=== PATIENT | female | born 1955 | race African-American/Black ===

== ENCOUNTER 2018-02-01 12:59 | Outpatient (CLI) | payer MEDICARE ==
[2018-02-01] MEDS ORDERED: Iopamidol 370 76% 100 ML VIAL ONE (13:08)
--- NOTE | 2018-02-01 15:31 | CT ---
CT ANGIOGRAM OF THE NECK: Date: 02-01-18 Comparison: None. History: Syncope, collapse, patient blacks out when it's hot outside. Technique: Serial axial CT imaging at 1 mm intervals from skull base through lung apices with IV contrast using a CT angiogram protocol. Coronal and sagittal 3D reformatted imaging obtained. FINDINGS: The imaged paranasal sinuses/mastoid air cells are well aerated. The retro, antral, and peripharyngeal fat appears clear bilaterally. The submandibular and the parotid glands are grossly unremarkable as are the tonsillar pillars, the h yoid bone, the epiglottis, the thyroid cartilage and the cricoid cartilage. There are hypodense nodul es noted within the thyroid gland bilaterally, measuring up to 9-10 mm on the left. The imaged lung apices appear grossly unremarkable. There is a bovine arch noted. The origin of the left common carotid artery, innominate artery, and ri ght common carotid artery appear unremarkable. Origin of left and right subclavian artery appear with in normal limits. Bilateral vertebral arteries are patent with no hemodynamically significant stenosis noted on either side. On the basis of NASCET criteria, no hemodynamically significant stenosis is noted within the common o r internal carotid artery on either side. No adenopathy is appreciated within the neck. The imaged osseous structures demonstrate mild multilev el cervical spine degenerative change. No worrisome lytic or blastic bone lesion. IMPRESSION: Arterial structures of the neck are patent with no hemodynamically significant stenosis within the ca rotid system on either side on the basis of NASCET criteria. Incidental findings as described above. POS: [facility]
--- NOTE | 2018-02-01 15:42 | MRI ---
BRAIN MRI WITHOUT CONTRAST: 02/01/18 COMPARISON: None. HISTORY: Syncope and collapse, patient blacks out when it is hot outside. TECHNIQUE: Multiplanar and multisequence MRI imaging of the brain is obtained without contrast. FINDINGS: The diffusion weighted imaging demonstrates no evidence for acute infarction. The axial gradient echo imaging demonstrates no evidence for intracranial hemorrhage. Imaged paranasal sinuses/mastoid air c ells are grossly unremarkable. There is a mild/moderated degree of diffuse cerebral volume loss. There are numerous subcentimeter fo ci of increased T2 and FLAIR signal throughout the periventricular, deep, and subcortical white matte r. Confluent areas of increased T2 and FLAIR signal noted near the atria of the right and left latera l ventricle and there are a few punctate foci of increased T2 and FLAIR signal within the fatemeh. These findings suggest significant small vessel ischemic disease. Regional bone marrow signal intensity appears grossly unremarkable. IMPRESSION: Evidence of small vessel ischemic disease and volume loss with no MR evidence of acute infarction or intracranial hemorrhage. POS: [facility]
== END 2018-02-01 13:00 | disposition home or self-care (01) ==
LOC: TBSIIMAG 12:59
PROVIDERS: ATTEND Psychiatry & Neurology Neurology
DX: R55 Syncope and collapse (principal); I67.82 Cerebral ischemia
CPT/HCPCS: 70498; 70551; 82565

== ENCOUNTER 2018-04-01 08:16 | Outpatient (CLI) | payer MEDICARE | END 2018-04-01 08:17 | disposition home or self-care (01) | LOC: BICMAMMO 08:16 | PROVIDERS: ATTEND Family Medicine | DX: Z12.31 Encounter for screening mammogram for malignant neoplasm of breast (principal); N64.89 Other specified disorders of breast | CPT/HCPCS: 77063; 77067 ==

== ENCOUNTER 2018-04-20 13:11 | Outpatient (CLI) | payer MEDICARE | END 2018-04-20 13:12 | disposition home or self-care (01) | LOC: BICULT 13:11 | PROVIDERS: ATTEND Family Medicine | DX: R22.31 Localized swelling, mass and lump, right upper limb (principal) | CPT/HCPCS: 76999 ==

== ENCOUNTER 2019-03-09 14:20 | Observation (INO) | payer MEDICARE ==
[2019-03-09 14:58] LABS: #Eosinphils 0.1 thou/uL (0.0-0.7); #Lymphocytes 1.4 thou/uL (1.20-3.40); #Monocytes 0.4 thou/uL (0.11-0.59); #Neutrophils 2.4 thou/uL (1.40-6.50); %Basophils 0.6 % (0.0-1.0); %Eosinophils 1.4 % (0.0-10.0); %Lymphocytes 32.5 % (21.0-51.0); %Monocytes 9.9 % (0.0-10.0); %Neutrophils 55.6 % (42.0-75.0); Hemoglobin 10.2 g/dL (12.0-16.0); Mean Corpuscular HGB CONC 32.8 g/dL (32.0-36.0); Mean Corpuscular Hemoglobin 28.1 pg (27.0-31.0); Mean Corpuscular Volume 85.6 fL (78.0-98.0); Mean Platelet Volume 8.4 fL (7.4-10.4); Platelet Count 183 thou/uL (130-400); RBC Distribution Width 12.9 % (11.5-14.5); Red Blood Cell (RBC) Count 3.62 mill/uL (4.20-5.40); White Blood Cell (WBC) Count 4.3 thou/uL (4.8-10.8)
--- NOTE | 2019-03-09 15:06 | CT ---
Exam: Head CT without contrast HISTORY: Altered mental state COMPARISON: 02/26/2016 FINDINGS: Hemorrhage: No intraparenchymal hemorrhage or extra-axial hematoma. Brain parenchyma: Cortical moreno-white matter differentiation is preserved. No mass effect or midline shift. Basilar cisterns are patent.Stable white matter hypodensities, likely due to chronic small vessel change. Ventricular system: Ventricles and sulci are patent and symmetric. Calvarium: Intact. Sinuses and mastoid air cells: Adequate aeration. IMPRESSION: No acute intracranial process.
[2019-03-09 15:18] LABS: ALT (SGPT) Less than 7 U/L (8-55); AST (SGOT) 16 U/L (5-34); Albumin 4.5 g/dL (3.4-4.8); Alkaline Phosphatase 59 U/L (40-150); Anion Gap 12 mmol/L (10-20); BUN (Urea Nitrogen) 24 mg/dL (9.8-20.1); Bilirubin, Total 0.4 mg/dL (0.2-1.2); Calc. Creatinine Clearance 0 mL/min (70-130); Calcium 10.5 mg/dL (7.8-10.44); Carbon Dioxide 34 mmol/L (23-31); Chloride 98 mmol/L (98-107); Estimated GFR-MDRD 60; Glucose 88 mg/dL (80-115); Potassium 3.4 mmol/L (3.5-5.1); Protein, Total 7.5 g/dL (6.0-8.3); Sodium 141 mmol/L (136-145)
[2019-03-09] MEDS ORDERED: niCARdipine 20MG In NaCl 20 MG/200 ML BAG ONE (15:19)
[2019-03-09] MEDS ORDERED: HYDROcodone/Acetaminophen 5/325 mg Tablet ONE (16:09)
[2019-03-09] MEDS ORDERED: Amlodipine 5 MG TAB ONE (16:56)
[2019-03-09] MEDS ORDERED: Lisinopril 10 MG TAB ONE (16:56)
[2019-03-09] MEDS ORDERED: Acetaminophen 325 MG TAB PO PRN (16:58)
[2019-03-09] MEDS ORDERED: Bisacodyl 5 MG TAB PO PRN (16:58)
[2019-03-09] MEDS ORDERED: Senokot S 8.6-50 MG TAB PO PRN (16:58)
[2019-03-09] MEDS ORDERED: Cyclobenzaprine 10 MG TAB PO PRN (18:13)
[2019-03-09] MEDS ORDERED: Cyclobenzaprine 10 MG TAB PO SCH (18:15)
[2019-03-09] MEDS ORDERED: Diazepam 5 MG TAB ONE (18:50)
--- NOTE | 2019-03-09 22:36 | HP ---
PRIMARY CARE PHYSICIAN: Gracia Cardoza MD. CHIEF COMPLAINT: High blood pressure. HISTORY OF PRESENT ILLNESS: Ms. Roberts is a 63-year-old female who presented to the emergency room today for high blood pressure. She was seen at her PCPs office today, noted to have a blood pressure of 200/100 without recent history of any hypertension. When she was at the PCPs office, she was also noted to have a high heart rate and with these two things they recommended the patient come to the emergency room for further evaluation. The patient's family denied the patient has been complaining of any chest pain. The patient denies any chest pain or shortness of breath. Does report myalgias throughout her whole body, which she reports is normal with her Parkinson disease. Dr. Stephens prescribed some Ritalin 5 mg once a day, which patient reports was due to her fear of being alone. She has not taking this medication and family was not aware she was taking it. Family reports that she had at one time a diagnosis of hypertension and was on medication, but has become anemic in recent years and been blood pressure has been on the lower side, so she stopped taking any medication for it. While in the ED, her initial blood pressure was 209/124. She was started on a Cardene drip at 5 mg/hour and then it went down to 2.5 mg/hour. Blood pressure came down to 151/93 and Cardene order was stopped and patient was given 2 p.o. medications, amlodipine and lisinopril. Blood pressure in the 160 systolic after the Cardene drip was stopped. PAST MEDICAL HISTORY: Pertinent for Parkinson's and hypertension in the past. Also has a history of PUD. PAST SURGICAL HISTORY: Appendectomy, hysterectomy. PSYCHIATRIC HISTORY: Anxiety, depression. SOCIAL HISTORY: Denies any alcohol or drug. No smoking history. Lives at home and is cared for by her family. IMAGING: CT scan of the brain in the emergency room shows no acute findings. LABORATORY DATA: Creatinine is 1.11, which is not far from baseline. When it was checked in 2018, it was 1.04. Troponin x2 have been undetectable. Potassium is 3.4, carbon dioxide 34, BUN 24, estimated GFR is 60. White blood cell count 4.3, hemoglobin 10.2, hematocrit 31.0, and platelet count is 183. The patient admitted to the telemetry unit for further management. PAST MEDICAL HISTORY: None. ALLERGIES: ASPIRIN, SULFA. CURRENT MEDICATIONS: 1. Carbidopa levodopa 10-100 mg p.o. 3 times daily. 2. Methylphenidate 5 mg p.o. once daily, although the bottle is empty and the patient reports that she has taken all and there is no refill. 3. Cyclobenzaprine 10 mg p.o. once daily. 4. Oxybutynin chloride 10 mg p.o. once daily. REVIEW OF SYSTEMS: The patient reports that she is hurting all over, myalgias. Denies any other complaints. All other systems reviewed and negative unless mentioned in the HPI. PHYSICAL EXAMINATION: VITAL SIGNS: Blood pressure 165/105, pulse is 93, respirations 17, pO2 sats are 100% on room air. CONSTITUTIONAL: The patient appears nontoxic. She is alert and oriented to person, place, and time. HEAD: Head is normocephalic. There is some bruising at the left oriental orthodox. EYES: Eyelids are normal to inspection. Pupils are equally round and reactive to light. ENT: Mouth exam is normal. Mucous membranes are moist. NECK: Normal range of motion. Trachea is midline. RESPIRATORY/CHEST: Breath sounds are clear. Chest movement is symmetrical. CARDIOVASCULAR: Regular heart rate and rhythm. Heart sounds are normal. ABDOMEN: Nontender bowel sounds are heard. BACK: Normal inspection, normal range of motion. No CVA tenderness. EXTREMITIES: Upper extremity normal inspection, normal range of motion. Radial pulses equal bilaterally. Lower extremities, bruising to bilateral lower extremity per daughter. Bilateral lower extremity able to make an effort against gravity, but is not able to lift bilaterally. NEUROLOGIC: Resting tremor to bilateral upper extremity and lips. The patient is oriented to person, place, and time. Speech is normal. SKIN: Warm, dry and normal in color. Ecchymoses noted as above. PSYCHIATRIC: The patient is tearful, has a flat affect. IMAGING: EKG in the emergency room shows normal sinus rhythm, beats per minute 79, conduction normal, axis is normal. PLAN/ASSESSMENT: 1. Hypertensive urgency. We will continue to monitor. Start p.o. medications, amlodipine and lisinopril. We will monitor overnight. P.r.n. medications as needed. 2. History of Parkinson's. We will restart home medications. 3. Deep venous thrombosis and gastrointestinal prophylaxis will be started. 4. Case was discussed with Dr. Roy who agrees with plan. 5. Hospital course dependent on clinical findings. Job ID: [id number]
[2019-03-09] MEDS ORDERED: HYDROcodone/Acetaminophen 5/325 mg Tablet PO PRN (23:15)
[2019-03-10 04:49] LABS: #Eosinphils 0.1 thou/uL (0.0-0.7); #Lymphocytes 1.3 thou/uL (1.20-3.40); #Monocytes 0.6 thou/uL (0.11-0.59); #Neutrophils 2.3 thou/uL (1.40-6.50); %Basophils 0.5 % (0.0-1.0); %Lymphocytes 30.9 % (21.0-51.0); %Monocytes 12.9 % (0.0-10.0); %Neutrophils 53.7 % (42.0-75.0); Hemoglobin 9.7 g/dL (12.0-16.0); Mean Corpuscular HGB CONC 33.7 g/dL (32.0-36.0); Mean Corpuscular Hemoglobin 28.9 pg (27.0-31.0); Mean Corpuscular Volume 85.5 fL (78.0-98.0); Mean Platelet Volume 8.7 fL (7.4-10.4); Platelet Count 169 thou/uL (130-400); Red Blood Cell (RBC) Count 3.35 mill/uL (4.20-5.40); White Blood Cell (WBC) Count 4.3 thou/uL (4.8-10.8)
[2019-03-10 05:06] LABS: ALT (SGPT) 8 U/L (8-55); AST (SGOT) 14 U/L (5-34); Albumin 3.8 g/dL (3.4-4.8); Alkaline Phosphatase 50 U/L (40-150); Anion Gap 11 mmol/L (10-20); BUN (Urea Nitrogen) 22 mg/dL (9.8-20.1); Bilirubin, Total 0.6 mg/dL (0.2-1.2); Calc. Creatinine Clearance 46 mL/min (70-130); Calcium 9.5 mg/dL (7.8-10.44); Carbon Dioxide 31 mmol/L (23-31); Chloride 100 mmol/L (98-107); Estimated GFR-MDRD 70; Globulin 2.5 g/dL (2.4-3.5); Glucose 78 mg/dL (80-115); Protein, Total 6.3 g/dL (6.0-8.3); Sodium 139 mmol/L (136-145)
[2019-03-10 05:07] VITALS: BMI 18.7
[2019-03-10 05:10] LABS: Potassium 2.9 mmol/L (3.5-5.1)
[2019-03-10] MEDS ORDERED: Potassium Chloride 20 MEQ TAB PO SCH (05:30)
[2019-03-10] MEDS: Carbidopa/Levodopa 25-100 mg Tablet PO SCH ×2 (08:53→13:33)
[2019-03-10] MEDS ORDERED: Oxybutynin ER 5 MG TAB PO SCH (09:00)
[2019-03-10] MEDS ORDERED: Amlodipine 10 MG TAB PO SCH (09:00)
[2019-03-10] MEDS ORDERED: Enoxaparin Sodium 40 MG/0.4 ML SYRINGE SC SCH (09:00)
[2019-03-10] MEDS ORDERED: Lisinopril 10 MG TAB PO SCH (09:00)
[2019-03-10 13:20] VITALS: BP 133/77; TEMP 97.1
[2019-03-10 14:02] LABS: Potassium 3.6 mmol/L (3.5-5.1)
--- NOTE | 2019-03-13 01:46 | DIS ---
DATE OF ADMISSION: 03/09/2019 DATE OF DISCHARGE: 03/10/2019 PRIMARY CARE PHYSICIAN: Dr. Gracia Cardoza. CHIEF COMPLAINT: On admission: High blood pressure. DISCHARGE DIAGNOSES: 1. Accelerated hypertension, resolved. 2. Hypokalemia, status post repletion. 3. Parkinson disease. BRIEF HOSPITAL COURSE: The patient is a pleasant 63-year-old female with past medical history significant for Parkinson disease as well as remote history of hypertension with no current therapies, and recent prescriptions for both oxybutynin as well as Ritalin, who presented at the behest of her PCP after being seen in her office with having a blood pressure of 200/100. The patient was asymptomatic and had no complaints of chest pain or shortness of breath, but she was urged to go to the ED for further workup and treatment. Her initial blood pressure here in the ED was 209/124. She was started on a Cardene drip at 5 mg an hour and then weaned down. She was started on amlodipine as well as lisinopril and monitored closely overnight. Her blood pressure did trend down beautifully. As mentioned, new medications for the patient included Ritalin as well as oxybutynin for overactive bladder. The Ritalin was prescribed by Dr. Stephens. Both of these medications have been known to cause hypertension and may have exacerbated her current untreated hypertension. In any case, her blood pressure trended down and remained in the 130s systolic with her oral medications. On the day of my interview, the patient feels well. She denies any chest pain or shortness of breath. She is tolerating her oral medications well. She was found to be fairly hypokalemic with an initial level of 2.9. She was given potassium supplementation and potassium at discharge was 3.6. DISCHARGE DISPOSITION: Home. DISCHARGE CONDITION: Stable. DISCHARGE MEDICATIONS: 1. She will continue her Carbidopa-levodopa as prescribed. 2. Cyclobenzaprine 10 mg p.o. t.i.d. 3. Oxybutynin 5 mg p.o. daily. 4. Amlodipine 10 mg p.o. daily (new medication). 5. Lisinopril 5 mg p.o. daily (new medication). 6. Potassium 99 mg tablet (new medication). DISCHARGE INSTRUCTIONS AND FOLLOWUP: I have had an extensive conversation with the family regarding the findings of this hospitalization. Both oxybutynin as well as Ritalin can cause hypertension. She has tolerated the oxybutynin well along with her antihypertensives and her blood pressure remained controlled. I have advised her to use Ritalin with care and talked to her the prescribing physician about this medication, and if reinstated, she is to monitor her blood pressure carefully. I have counseled her extensively on proper ambulatory blood pressure readings, and when to take her medications. She has a very supportive family and all questions have been answered. She will be discharged home today in good condition with the above medications and instructions on low-sodium diet as well. Job ID: [id number]
--- NOTE | 2019-03-13 16:32 | EKG ---
Test Reason : Blood Pressure : / mmHG Vent. Rate : 079 BPM Atrial Rate : 079 BPM P-R Int : 168 ms QRS Dur : 074 ms QT Int : 388 ms P-R-T Axes : 076 039 051 degrees QTc Int : 444 ms Normal sinus rhythm Normal ECG Confirmed by EMILY SIERRA, JULIANNE ([id number]), editor managing director MARIO DESAI ([id number] on 03/13/2019 4:32:25 PM Referred By: Confirmed By:JULIANNE DIAZ MD
== END 2019-03-10 15:26 | disposition home or self-care (01) ==
LOC: ERS 14:20 → 2NO 17:34
PROVIDERS: ADMIT Internal Medicine; ATTEND Internal Medicine
DX: I16.0 Hypertensive urgency (principal); E87.6 Hypokalemia; G20 Parkinson's disease; F41.9 Anxiety disorder, unspecified; F32.9 Major depressive disorder, single episode, unspecified; Z88.2 Allergy status to sulfonamides; Z88.6 Allergy status to analgesic agent; Z79.899 Other long term (current) drug therapy
CPT/HCPCS: 70450; 80053 ×2; 83880; 84132; 84484 ×2; 85025 ×2; 93005; 96365; 96366; 96372; 97116; 97139; 99285; G0378 ×3; 36415; J1650

== ENCOUNTER 2020-11-26 17:39 | Emergency (ER) | payer MEDICARE ==
[2020-11-26 18:58] LABS: #Eosinphils 0.1 thou/uL (0.0-0.7); #Monocytes 0.4 thou/uL (0.11-0.59); #Neutrophils 2.9 thou/uL (1.40-6.50); %Eosinophils 1.4 % (0.0-10.0); %Lymphocytes 22.2 % (21.0-51.0); %Neutrophils 66.5 % (42.0-75.0); Hemoglobin 7.7 g/dL (12.0-16.0); Mean Corpuscular HGB CONC 30.8 g/dL (32.0-36.0); Mean Corpuscular Hemoglobin 23.4 pg (27.0-31.0); Platelet Count 254 thou/uL (130-400); RBC Distribution Width 18.6 % (11.5-14.5); Red Blood Cell (RBC) Count 3.29 mill/uL (4.20-5.40); White Blood Cell (WBC) Count 4.4 thou/uL (4.8-10.8)
[2020-11-26 19:23] LABS: ALT (SGPT) 19 U/L (8-55); AST (SGOT) 20 U/L (5-34); Albumin 4.3 g/dL (3.4-4.8); Alkaline Phosphatase 53 U/L (40-110); Anion Gap 14 mmol/L (10-20); BUN (Urea Nitrogen) 25 mg/dL (9.8-20.1); Bilirubin, Total 0.2 mg/dL (0.2-1.2); Calc. Creatinine Clearance 0 mL/min (70-130); Calcium 10.4 mg/dL (7.8-10.44); Carbon Dioxide 29 mmol/L (23-31); Chloride 101 mmol/L (98-107); Globulin 2.9 g/dL (2.4-3.5); Glucose 91 mg/dL (80-115); Potassium 3.4 mmol/L (3.5-5.1); Protein, Total 7.2 g/dL (5.8-8.1); Sodium 141 mmol/L (136-145)
[2020-11-26] MEDS ORDERED: Labetalol HCl 100 MG/20 ML VIAL ONE (19:58)
[2020-11-26] MEDS ORDERED: Potassium Chloride 20 MEQ TAB ONE (20:48)
[2020-11-26] MEDS ORDERED: cloNIDine 0.1 MG TAB ONE (21:28)
== END 2020-11-27 00:33 | disposition home or self-care (01) ==
LOC: ERS 17:39
DX: I10 Essential (primary) hypertension (principal); D64.9 Anemia, unspecified
CPT/HCPCS: 36430; 80053; 84484; 85025; 86850; 86900; 86901; 86920; 93005; P9016; 36415; 96374

== ENCOUNTER → 2020-11-26 | Day surgery (SDC) | payer MEDICARE ==
[~2020-11-26] MED LIST: Acetaminophen 500 MG TAB PO SCH; diphenhydrAMINE 25 MG CAP PO SCH
== END ==
LOC: SDC/OP 15:15
PROVIDERS: ATTEND Internal Medicine Hematology & Oncology
PROC: 30233N1 Transfusion of Nonautologous Red Blood Cells into Peripheral Vein, Percutaneous Approach (ICD-10-PCS; principal; 2020-11-26)
DX: D64.9 Anemia, unspecified (principal); D69.6 Thrombocytopenia, unspecified; Z88.2 Allergy status to sulfonamides; Z88.6 Allergy status to analgesic agent

== ENCOUNTER 2021-06-17 18:39 | Emergency (ER) | payer MEDICARE ==
[2021-06-17 19:33] LABS: #Basophils 0.1 thou/uL (0.0-0.2); #Lymphocytes 0.8 thou/uL (1.20-3.40); #Monocytes 0.5 thou/uL (0.11-0.59); #Neutrophils 3.1 thou/uL (1.40-6.50); %Basophils 1.5 % (0.0-1.0); %Lymphocytes 17.8 % (21.0-51.0); %Monocytes 10.6 % (0.0-10.0); %Neutrophils 69.2 % (42.0-75.0); Hemoglobin 10.4 g/dL (12.0-16.0); Mean Corpuscular HGB CONC 33.4 g/dL (32.0-36.0); Mean Corpuscular Hemoglobin 30.6 pg (27.0-31.0); Mean Corpuscular Volume 91.7 fL (78.0-98.0); Mean Platelet Volume 7.3 fL (7.4-10.4); Platelet Count 201 thou/uL (130-400); RBC Distribution Width 13.6 % (11.5-14.5); Red Blood Cell (RBC) Count 3.41 mill/uL (4.20-5.40); White Blood Cell (WBC) Count 4.5 thou/uL (4.8-10.8)
[2021-06-17 19:55] LABS: ALT (SGPT) 9 U/L (8-55); AST (SGOT) 15 U/L (5-34); Alkaline Phosphatase 48 U/L (40-110); Anion Gap 10 mmol/L (10-20); BUN (Urea Nitrogen) 23 mg/dL (9.8-20.1); Bilirubin, Total 0.3 mg/dL (0.2-1.2); Calc. Creatinine Clearance 0 mL/min (70-130); Calcium 9.9 mg/dL (7.8-10.44); Carbon Dioxide 33 mmol/L (23-31); Chloride 99 mmol/L (98-107); Globulin 2.6 g/dL (2.4-3.5); Glucose 111 mg/dL (80-115); Potassium 3.2 mmol/L (3.5-5.1); Protein, Total 6.6 g/dL (5.8-8.1); Sodium 139 mmol/L (136-145)
[2021-06-17] MEDS ORDERED: Acetaminophen 500 MG TAB ONE (21:09)
[2021-06-17] MEDS ORDERED: Ondansetron ODT 4 MG TAB ONE (21:09)
[2021-06-17] MEDS ORDERED: Meclizine HCl 25 MG TAB ONE (21:09)
== END 2021-06-17 22:40 | disposition home or self-care (01) ==
LOC: ERS 18:39
DX: S09.90XA Unspecified injury of head, initial encounter (principal); I10 Essential (primary) hypertension; M25.522 Pain in left elbow; R11.0 Nausea; Z79.899 Other long term (current) drug therapy; W01.198A Fall on same level from slipping, tripping and stumbling with subsequent striking against other object, initial encounter
CPT/HCPCS: 36415; 70450; 71045; 80053; 84484; 85025; Q0162

== ENCOUNTER 2022-11-03 10:07 | Outpatient (CLI) | payer MEDICARE | END 2022-11-03 10:08 | disposition home or self-care (01) | LOC: NM 10:07 | PROVIDERS: ATTEND Psychiatry & Neurology Neurology | DX: R26.9 Unspecified abnormalities of gait and mobility (principal); R94.02 Abnormal brain scan | CPT/HCPCS: 78803; A9584 ==